=== PATIENT | female | born 1955 | race Caucasian/White ===

== ENCOUNTER 2024-06-17 23:01 | Emergency (ER) | payer OTHER, SELFPAY ==
[2024-06-17 23:09] VITALS: BP 140/67; PULSE 79; TEMP 36.6; O2SAT 94; BMI 49.9
--- NOTE | 2024-06-17 23:22 | PC.NURSE ---
pt states woke up tonight with blurred vision to right eye. pt states everything is foggy but can see light and shadows. pt also states wears glasses but they have been broken for a while and states has htn but ran out of meds 2 weeks ago . pt states does not have any drs since being dc from custodial for 2 yrs and gets meds filled through [facility] er
--- NOTE | 2024-06-17 23:26 | CT_ITS ---
The [address] [address] Patient Name: ANA SOTO MRN: [id number] date: 1955 Sex: F Assigned Patient Location: ER Current Patient Location: ER Accession/Order Number: [id number] Exam Date: 06/17/2024 23:44 Report Date: 06/18/2024 00:49 At the request of: DARIEN MARKER Procedure: CT head/brain wo con EXAM: CT head/brain wo con HISTORY: visual change COMPARISON: None. TECHNIQUE: Nonenhanced CT imaging the head was performed with sagittal and coronal reconstructions. FINDINGS: No intracranial hemorrhage, vasogenic edema, mass effect or midline shift is seen. No acute ischemia is seen in a major vascular distribution. No acute hyperdense thromboembolism is identified in the intracranial arterial circulation. Age related brain atrophy is noted. Mild nonspecific periventricular lucencies favor mild chronic small vessel white matter ischemia. The ventricles and extra-axial CSF spaces appear within normal limits. The calvarium is intact. A metopic suture is incidentally noted. There is left sphenoid sinus mucosal thickening. Remaining paranasal sinuses and the bilateral mastoid air cells are otherwise clear. CT/CT head/brain wo con IMPRESSION: No acute intracranial abnormality. Chronic intracranial findings are described above. Electronically authenticated by: EREN PÉREZ Date: 06/18/2024 00:49
--- NOTE | 2024-06-17 23:27 | ED_ITS ---
HPI - Eye Problem General Chief complaint: Eye Problems Stated complaint: VISION ISSUES Time Seen by Provider: 06/17/24 23:09 Source: patient Mode of arrival: Wheelchair Limitations: no limitations History of Present Illness HPI Narrative: This 68-year-old female who wears corrective glasses but they have been broken for several months presents for evaluation of visual change in her right eye. The patient states she woke up from a nap earlier this evening and the right eye is very blurry. She describes it as looking outside into fog. She also has a history of hypertension and is on multiple medications but has not been taking them because she ran out of them. She states she does not currently have a family physician after she was admitted to a intermediate for 8 months. She states she goes to [facility] emergency department to get her prescriptions refilled. She states she has had a right sided headache for the past several weeks and today her vision change. She denies any neck pain or st iffness. She has no other focal neurologic symptom. She has no weakness numbness or tingling. She has no slurred speech or confusion. She states that her granddaughter recently got diagnosed with COVID-19 and was at her house. She denies any fever. She denies any chest pain but did have some shortness of breath earlier in the day. She does admit to tobacco use. MD chief complaint: Reports vision change Related Data Home Medications ?Medication ?Instructions ?Recorded ?Confirmed albuterol sulfate 2.5 mg/3 mL 2.5 mg inhalation Q4H PRN 06/17/24 06/17/24 (0.083 %) solution for nebulization shortness of breath or wheezing alprazolam 1 mg tablet (Xanax) 1 mg PO DAILY PRN anxiety 06/17/24 06/17/24 aspirin 81 mg capsule 81 mg PO DAILY 06/17/24 06/17/24 cyclobenzaprine 10 mg tablet 10 mg PO BID 06/17/24 06/17/24 hydrocodone 5 mg-acetaminophen 325 1 tab PO Q12H PRN pain 06/17/24 06/17/24 mg tablet ipratropium 0.5 mg-albuterol 3 mg 3 ml inhalation Q8H 06/17/24 06/17/24 (2.5 mg base)/3 mL nebulization soln lisinopril 20 mg tablet 20 mg PO DAILY 06/17/24 06/17/24 metoprolol succinate 50 mg 50 mg PO DAILY 06/17/24 06/17/24 tablet,extended release 24 hr omeprazole 40 mg capsule,delayed 40 mg PO DAILY 06/17/24 06/17/24 release sertraline 100 mg tablet 100 mg PO BID 06/17/24 06/17/24 spironolactone 50 mg tablet 50 mg PO DAILY 06/17/24 06/17/24 Allergies Allergy/AdvReac Type Severity Reaction Status Date / Time cephalexin [From Keflex] AdvReac Severe Hives Verified 06/17/24 23:13 gabapentin AdvReac Severe Hives Verified 06/17/24 23:13 Review of Systems ROS Status of ROS 10 or more systems reviewed and unremark able except as noted in history and below Exam Narrative Exam Narrative: Vital signs and Nursing Notes reviewed: Patient is a febrile with a normal pulse, blood pressure is mildly elevated at 140/67, she is mildly hypoxic with pulse ox of 94% on room air General: Awake, alert, oriented, no acute distress, overweight female, no respiratory distress HEENT: Normocephalic atraumatic, mucous membranes are dry, there is no swelling of the tongue, uvula or pharyngeal soft tissues, pupils are equal and reactive, extraocular muscles are intact, patient has decreased vision in the right eye compared to the left. Fundoscopic exam does not show any blood or notable abnormality however I did not dilate her eyes. There is mild tenderness in the right forehead area without appreciable pulsatile mass over the temporal artery Neck: Supple, no meningeal signs, no anterior or posterior cervical lymphadenopathy, no appreciable bruits Chest: Lungs are clear to auscultation with good air entry, there is no wheezing rhonchi or rales appreciated no accessory muscle use, patient is speaking in complete sentences-no chest wall tenderness to palpation CVS: Regular rate and rhythm S1-S2, no murmurs rubs or gallops, pulses are brisk and equal bilaterally ABD: Soft, nondistended, nontender, no rebound guarding or rigidity, bowel sounds are normal, no pulsatile masses appreciated Extremities: 2+ pitting edema bilaterally, there is tenderness to the left lateral hip with decreased range of motion due to chronic hip pain Skin: Normal in appearance without rash,pallor, petechiae or purpura Neuro: No focal deficits, speech is clear, positive rapid alternating hand movements, electrolysis operator strength is intact, negative pronator drift, patient is unable to lift her left leg off the stretcher due to hip pain but able to lift the right leg off of the stretcher without difficulty push and pulls of the lower extremity are normal Constitutional Vital Signs, click to edit/add: Last Vital Signs Temp 97.9 F 06/17/24 23:09 Pulse 79 06/17/24 23:09 Resp 18 06/17/24 23:09 BP 140/67 06/17/24 23:09 Pulse Ox 94 L 06/17/24 23:09 O2 Del Method Room Air 06/17/24 23:09 Course Vital Signs Vital signs: Vital Signs Temperature 97.9 F 06/17/24 23:09 Pulse Rate 79 06/17/24 23:09 Respiratory Rate 18 06/17/24 23:09 Blood Pressure 140/67 06/17/24 23:09 Pulse Oximetry 94 L 06/17/24 23:09 Oxygen Delivery Method Room Air 06/17/24 23:09 Temperature 97.9 F 06/17/24 23:09 Pulse Rate 79 06/17/24 23:09 Respiratory Rate 18 06/17/24 23:09 Blood Pressure 140/67 06/17/24 23:09 Pulse Oximetry 94 L 06/17/24 23:09 Oxygen Delivery Method Room Air 06/17/24 23:09 MDM - Eye Problem MDM Narrative Medical decision making narrative: This 68-year-old female presents for evaluation of a visual change in her right eye. The patient is supposed to be wearing corrective lenses and they have been broken for the past several months. She has not gotten them repaired or replaced. She also admits to medication noncompliance and has not had her blood pressure medications for the last several days. She explains that she does not have a family physician or any physician for that matter since being released from a intermediate where she was admitted for 8 months. She states she has been going to different ERs to get her prescriptions filled. She admits to tobacco use. She denies any chest pain or shortness of breath. She has no dizziness or syncope but does complain of a right sided headache for the past several weeks and has some tenderness over her right forehead area. Her neuroexam is otherwise normal. Her vision is poor in both eyes but worse in the right eye. Funduscopic exam did not reveal any acute findings however I did not dilate her eyes for the exam. CT scan of the brain was negative for acute findings. She also complained of some left hip pain that was elicited when I asked her to raise her left leg off of the stretcher. She denies any injury but states she has been having ongoing hip pain for some time. Routine labs are ordered and are reviewed. She has a normal white count and hemoglobin. Her sed rate is elevated at 77. Electrolytes are normal. COVID-19 testing is negative. X-ray of the left hip shows severe arthritis. Due to the elevated sed rate, right sided headache and visual change she was medicated with 60 mg of oral prednisone. She will be discharged home with prescription for the prednisone to use for the next week and I encouraged her to follow-up as soon as possible with an aboriginal education teacher. She states she does have an appointment with Dr. Schaefer in [place] later this month and in the meantime request that I fill her prescriptions for metoprolol and lisinopril. Clinically she is not having a stroke but may be suffering from temporal arteritis. This was discussed with her at length and she was given instructions on her discharge papers regarding this diagnosis. Medical Records Medical records narrative: The [address] [address] XRay Report Signed Patient: ANA SOTO MR#: [id number] : 1955 Acct:[id number] Age/Sex: 68 / F ADM Date: 06/17/24 Loc: ER Attending Dr: Ordering Physician: Tamiko Edmond Date of Service: 06/17/24 Procedure(s): XR hip LT 2V w/ pelvis Accession Number(s): [id number] cc: Tamiko Edmond; Physician,Non-Staff M.DJelena~ The [address] [address] Patient Name: ANA SOTO MRN: [id number] date: 1955 Sex: F Assigned Patient Location: ER Current Patient Location: ER Accession/Order Number: [id number] Exam Date: 06/17/2024 23:48 Report Date: 06/18/2024 00:46 At the request of: TAMIKO MARKER Procedure: XR hip LT 2V w/ pelvis EXAM: XR hip LT 2V w/ pelvis HISTORY: left hip pain COMPARISON: None. TECHNIQUE: AP pelvis with AP and frog-leg lateral left hip x-rays. FINDINGS: Bones appear osteopenic. No acute fracture, pelvic diastasis or hip dislocation is seen. There is severe left hip osteoarthritis. No focal bony lesion is identified. XR/XR hip LT 2V w/ pelvis IMPRESSION: 1. No acute findings. 2. Severe left hip osteoarthritis. Electronically authenticated by: EREN PÉREZ Date: 06/18/2024 00:46 [address] [place] [id number] CT Scan Report Signed Patient: ANA SOTO MR#: [id number] : 1955 Acct:[id number] Age/Sex: 68 / F ADM Date: 06/17/24 Loc: ER Attending Dr: Ordering Physician: Tamiko Edmond Date of Service: 06/17/24 Procedure(s): CT head/brain wo con Accession Number(s): [id number] cc: Physician,Non-Staff M.Andreas~ The [address] [address] Patient Name: ANA SOTO MRN: [id number] date: 1955 Sex: F Assigned Patient Location: ER Current Patient Location: ER Accession/Order Number: [id number] Exam Date: 06/17/2024 23:44 Report Date: 06/18/2024 00:49 At the request of: TAMIKO MARKER Procedure: CT head/brain wo con EXAM: CT head/brain wo con HISTORY: visual change COMPARISON: None. TECHNIQUE: Nonenhanced CT imaging the head was performed with sagittal and coronal reconstructions. FINDINGS: No intracranial hemorrhage, vasogenic edema, mass effect or midline shift is seen. No acute ischemia is seen in a major vascular distribution. No acute hyperdense thromboembolism is identified in the intracranial arterial circulation. Age related brain atrophy is noted. Mild nonspecific periventricular lucencies favor mild chronic small vessel white matter ischemia. The ventricles and extra-axial CSF spaces appear within normal limits. The calvarium is intact. A metopic suture is incidentally noted. There is left sphenoid sinus mucosal thickening. Remaining paranasal sinuses and the bilateral mastoid air cells are otherwise clear. CT/CT head/brain wo con IMPRESSION: No acute intracranial abnormality. Chronic intracranial findings are described above. Electronically authenticated by: EREN PÉREZ Date: 06/18/2024 00:49 Lab Data Attestation: I reviewed the patient's lab results. Labs: Lab Results 06/17/24 06/17/24 Range/Units 23:33 23:35 WBC 12.7 H (4.0-11.0) 10^3/uL RBC 4.78 (4.20-5.40) 10^6/uL Hgb 13.8 (12.0-16.0) g/dL Hct 43.2 (36.0-48.0) % MCV 90.4 (81.0-99.0) fL MCH 28.9 (26.7-34.0) pg MCHC 31.9 (29.9-35.2) g/dL RDW 13.8 (11.0-15.0) % Plt Count 241 (150-450) 10^3/uL MPV 9.7 (9.5-13.5) fL Neut % (Auto) 62.4 (43.0-75.0) % Lymph % (Auto) 26.7 (20.5-60.0) % [place] % (Auto) 7.3 (1.7-12.0) % Eos % (Auto) 2.5 (0.9-7.0) % Baso % (Auto) 0.5 (0.2-2.0) % Neut # (Auto) 7.9 H (1.4-6.5) 10^3/uL Lymph # (Auto) 3.4 (1.2-3.8) 10^3/uL [place] # (Auto) 0.9 H (0.3-0.8) 10^3/uL Eos # (Auto) 0.3 (0.0-0.7) 10^3/uL Baso # (Auto) 0.1 (0.0-0.1) 10^3/uL Abs Immat Gran (auto) 0.08 H (0.00-0.03) 10^3/uL Imm/Tot Granulo (auto) 0.6 H (0.0-0.5) % ESR 77 H (<=30) mm/hr Sodium 137 (136-145) mmol/L Potassium 4.1 (3.5-5.1) mmol/L Chloride 102 (98-107) mmol/L Carbon Dioxide 31.1 (21.0-32.0) mmol/L Anion Gap 8.0 BUN 26.0 H (7.0-18.0) mg/dL Creatinine 0.92 (0.55-1.02) mg/dL Est GFR ( Amer) >60 (>=60) Est GFR (Non-Af Amer) >60 (>=60) BUN/Creatinine Ratio 28.3 Glucose 105 (74-106) mg/dL Calcium 8.6 (8.5-10.1) mg/dL Total Bilirubin 0.3 (0.2-1.0) mg/dL AST 15 (15-37) U/L ALT 15 (14-59) U/L Alkaline Phosphatase 95 (46-116) U/L Troponin I High Sens 8.2 (4.0-51.3) pg/mL Total Protein 6.7 (6.4-8.2) g/dL Albumin 2.7 L (3.4-5.0) g/dL Globulin 4.0 g/dL Albumin/Globulin Ratio 0.7 SARS-CoV-2 Ag (CV2AG) Negative (NEGATIVE) Discharge Plan Discharge Chief Complaint: Eye Problems Clinical Impression: Visual loss, Temporal arteritis Patient Disposition: Home, Self-Care Time of Disposition Decision: 01:11 Condition: Fair Mode of Transportation: Private Vehicle Prescriptions / Home Meds: No Action ipratropium-albuterol 0.5 mg-3 mg(2.5 mg base)/3 mL solution for nebulization 3 ml INHALATION Q8H albuterol sulfate 2.5 mg /3 mL (0.083 %) solution for nebulization 2.5 mg inhalation Q4H PRN (Reason: shortness of breath or wheezing) metoprolol succinate 50 mg tablet extended release 24 hr 50 mg PO DAILY lisinopril 20 mg tablet 20 mg PO DAILY sertraline 100 mg tablet 100 mg PO BID omeprazole 40 mg capsule,delayed release(DR/EC) 40 mg PO DAILY spironolactone 50 mg tablet 50 mg PO DAILY aspirin 81 mg capsule 81 mg PO DAILY cyclobenzaprine 10 mg tablet 10 mg PO BID hydrocodone-acetaminophen 5-325 mg tablet 1 tab PO Q12H PRN (Reason: pain) alprazolam [Xanax] 1 mg tablet 1 mg PO DAILY PRN (Reason: anxiety) Print Language: Mongolian Instructions: Temporal Arteritis (ED), Blurred Vision (ED) Referrals: Physician,Non-Staff, MD [Primary Care Provider] - 1 week
--- NOTE | 2024-06-17 23:27 | XR_ITS ---
The [address] [address] Patient Name: ANA SOTO MRN: [id number] date: 1955 Sex: F Assigned Patient Location: ER Current Patient Location: ER Accession/Order Number: [id number] Exam Date: 06/17/2024 23:48 Report Date: 06/18/2024 00:46 At the request of: DARIEN MARKER Procedure: XR hip LT 2V w/ pelvis EXAM: XR hip LT 2V w/ pelvis HISTORY: left hip pain COMPARISON: None. TECHNIQUE: AP pelvis with AP and frog-leg lateral left hip x-rays. FINDINGS: Bones appear osteopenic. No acute fracture, pelvic diastasis or hip dislocation is seen. There is severe left hip osteoarthritis. No focal bony lesion is identified. XR/XR hip LT 2V w/ pelvis IMPRESSION: 1. No acute findings. 2. Severe left hip osteoarthritis. Electronically authenticated by: EREN PÉREZ Date: 06/18/2024 00:46
[2024-06-17 23:45] LABS: Basophils Absolute Auto 0.1 10^3/uL (0.0-0.1); Basophils Percent Auto 0.5 % (0.2-2.0); Eosinophils Absolute Auto 0.3 10^3/uL (0.0-0.7); Eosinophils Percent Auto 2.5 % (0.9-7.0); Hematocrit 43.2 % (36.0-48.0); Hemoglobin 13.8 g/dL (12.0-16.0); Immature Granulocytes Abs Auto 0.08 10^3/uL (0.00-0.03); Immature Granulocytes Pct Auto 0.6 % (0.0-0.5); Lymphocytes Absolute Auto 3.4 10^3/uL (1.2-3.8); Lymphocytes Percent Auto 26.7 % (20.5-60.0); Mean Corpuscular HGB Conc 31.9 g/dL (29.9-35.2); Mean Corpuscular Hemoglobin 28.9 pg (26.7-34.0); Mean Corpuscular Volume 90.4 fL (81.0-99.0); Mean Platelet Volume 9.7 fL (9.5-13.5); Monocytes Absolute Auto 0.9 10^3/uL (0.3-0.8); Monocytes Percent Auto 7.3 % (1.7-12.0); Neutrophils Absolute Auto 7.9 10^3/uL (1.4-6.5); Neutrophils Percent Auto 62.4 % (43.0-75.0); Platelet Count 241 10^3/uL (150-450); Red Blood Count 4.78 10^6/uL (4.20-5.40); Red Cell Distribution Width 13.8 % (11.0-15.0); White Blood Count 12.7 10^3/uL (4.0-11.0)
[2024-06-17 23:53] LABS: Erythrocyte Sedimentation Rate 77 mm/hr (<=30)
[2024-06-17 23:57] LABS: Internal Control Within Normal Limits; SARS-CoV-2 Ag NEGATIVE (NEGATIVE)
[2024-06-18 00:06] LABS: Alanine Aminotransferase 15 U/L (14-59); Albumin Globulin Ratio 0.7; Albumin Level 2.7 g/dL (3.4-5.0); Alkaline Phosphatase 95 U/L (46-116); Aspartate Amino Transferase 15 U/L (15-37); BUN Creatinine Ratio 28.3; Bilirubin Total 0.3 mg/dL (0.2-1.0); Calcium 8.6 mg/dL (8.5-10.1); Carbon Dioxide 31.1 mmol/L (21.0-32.0); Chloride 102 mmol/L (98-107); Estimated GFR (African America >60 (>=60); Estimated GFR (Non-African Ame >60 (>=60); Glucose 105 mg/dL (74-106); Potassium 4.1 mmol/L (3.5-5.1); Sodium 137 mmol/L (136-145); Total Protein 6.7 g/dL (6.4-8.2); Troponin I High Sensitivity 8.2 pg/mL (4.0-51.3)
[2024-06-18] MEDS: PREDNISONE 20 MG TABLET 60 MG PO (00:55)
== END 2024-06-18 01:20 | disposition home or self-care (01) ==
PROVIDERS: Emergency Provider Emergency Medicine
DX: M31.6 Other giant cell arteritis (principal); H54.61 Unqualified visual loss, right eye, normal vision left eye; Z20.822 Contact with and (suspected) exposure to COVID-19; I10 Essential (primary) hypertension; F17.200 Nicotine dependence, unspecified, uncomplicated
CPT/HCPCS: 36415; 70450; 73502; 80053; 84484; 85025; 85652; 87811; 99285; J7512